=== PATIENT | male | born 1960 | race Caucasian/White ===

== ENCOUNTER → 2025-04-05 13:23 | Outpatient (REF) | payer OTHER, SELFPAY ==
[2025-04-05 14:04] LABS: Blood Urea Nitrogen 32 mg/dl (9-20); Calcium 9.4 mg/dl (8.4-10.2); Carbon Dioxide 28 mmol/L (22-30); Chloride 104 mmol/L (98-107); Glucose 105 mg/dl (70-99); Potassium 4.5 mmol/L (3.5-5.1); Sodium 136 mmol/L (135-145); eGFR 56.48
== END ==
LOC: REG 13:23
PROVIDERS: ATTENDING PHYSICIAN Family Medicine
DX: R31.29 Other microscopic hematuria (principal); N18.31 Chronic kidney disease, stage 3a; Z01.818 Encounter for other preprocedural examination
CPT/HCPCS: 36415; 74178; 80048; Q9967

== ENCOUNTER → 2025-04-18 20:02 | Outpatient (REF) | payer OTHER, SELFPAY | LOC: MRI 20:02 | PROVIDERS: ATTENDING PHYSICIAN Specialist; FAMILY PHYSICIAN Family Medicine | DX: D41.02 Neoplasm of uncertain behavior of left kidney (principal); R93.49 Abnormal radiologic findings on diagnostic imaging of other urinary organs; R31.0 Gross hematuria | CPT/HCPCS: 74183; A9575 ==

== ENCOUNTER → 2025-05-02 07:13 | Outpatient (REF) | payer OTHER, SELFPAY ==
[2025-05-02] VITALS (15 sets, daily range): BP systolic 47–146; BP diastolic 57–88
[2025-05-02 07:56] LABS: Hematocrit 35.9 % (39.0-52.0); Hemoglobin 10.9 g/dL (13.0-18.0); Mean Corp Hgb Conc. 30.4 g/dL (33.0-37.0); Mean Corpuscular Volume 79.2 fL (80.0-94.0); Nucleated Red Blood Cells % 0 % (-); Platelet Count 220 10^3/uL (130-400); Red Cell Dist. Width 18.5 % (11.5-14.5)
[2025-05-02 08:03] LABS: INR 1.21; PT 15.6 Sec (11.4-14.6)
[2025-05-02] MEDS: ANCEF 10 IV (08:22)
[2025-05-02 08:38] LABS: Blood Urea Nitrogen 30 mg/dl (9-20); Calcium 9.7 mg/dl (8.4-10.2); Carbon Dioxide 29 mmol/L (22-30); Chloride 104 mmol/L (98-107); Estimated Creatinine Clearance 62 ml/min; Glucose 101 mg/dl (70-99); Potassium 4.9 mmol/L (3.5-5.1); Sodium 136 mmol/L (135-145); eGFR 41.77
== END ==
LOC: RADI 07:13
PROVIDERS: ATTENDING PHYSICIAN Specialist; FAMILY PHYSICIAN Family Medicine; REFERRING PHYSICIAN Physician Assistant
DX: C64.2 Malignant neoplasm of left kidney, except renal pelvis (principal); Z85.47 Personal history of malignant neoplasm of testis; Z85.118 Personal history of other malignant neoplasm of bronchus and lung; Z85.89 Personal history of malignant neoplasm of other organs and systems; Z01.812 Encounter for preprocedural laboratory examination; Z01.818 Encounter for other preprocedural examination
CPT/HCPCS: 36415; 50200; 77012; 80048; 85025; 85610; 88305; 88333; 88341; 88342; 99152; 99153

== ENCOUNTER → 2025-05-22 09:02 | Outpatient (REF) | payer OTHER, SELFPAY ==
[2025-05-22 09:23] VITALS: BP 138/86; BP_SYST 50
== END ==
LOC: RADI 09:02
PROVIDERS: ATTENDING PHYSICIAN Internal Medicine Hematology & Oncology
DX: Z45.2 Encounter for adjustment and management of vascular access device (principal)
CPT/HCPCS: 36598

== ENCOUNTER → 2025-05-31 13:37 | Outpatient (REF) | payer OTHER, SELFPAY ==
[2025-05-31 14:20] LABS: Hematocrit 33.3 % (39.0-52.0); Hemoglobin 10.3 g/dL (13.0-18.0); Mean Corp Hgb Conc. 30.9 g/dL (33.0-37.0); Mean Corpuscular Volume 82.0 fL (80.0-94.0); Nucleated Red Blood Cells % 0 % (-); Platelet Count 223 10^3/uL (130-400); Red Cell Dist. Width 18.8 % (11.5-14.5)
[2025-05-31 16:00] LABS: ALT (SGPT) 33 U/L (0-50); AST (SGOT) 40 U/L (17-59); Albumin 4.5 g/dl (3.5-5.0); Alkaline Phosphatase 138 U/L (38-126); Blood Urea Nitrogen 33 mg/dl (9-20); Calcium 9.3 mg/dl (8.4-10.2); Carbon Dioxide 24 mmol/L (22-30); Chloride 103 mmol/L (98-107); Glucose 95 mg/dl (70-99); Potassium 5.1 mmol/L (3.5-5.1); Sodium 136 mmol/L (135-145); Total Protein 6.9 g/dl (6.3-8.2); eGFR 41.77
== END ==
LOC: REG 13:37
PROVIDERS: ATTENDING PHYSICIAN Internal Medicine Hematology & Oncology; FAMILY PHYSICIAN Family Medicine
DX: C66.9 Malignant neoplasm of unspecified ureter (principal); D50.0 Iron deficiency anemia secondary to blood loss (chronic); C78.7 Secondary malignant neoplasm of liver and intrahepatic bile duct
CPT/HCPCS: 36415; 80053; 85025

== ENCOUNTER → 2025-06-06 08:21 | Outpatient (REF) | payer OTHER, SELFPAY ==
[2025-06-06 09:13] LABS: Hematocrit 33.8 % (39.0-52.0); Hemoglobin 10.3 g/dL (13.0-18.0); Mean Corp Hgb Conc. 30.5 g/dL (33.0-37.0); Mean Corpuscular Volume 82.2 fL (80.0-94.0); Nucleated Red Blood Cells % 0 % (-); Platelet Count 189 10^3/uL (130-400); Red Cell Dist. Width 18.9 % (11.5-14.5)
[2025-06-06 09:41] LABS: ALT (SGPT) 28 U/L (0-50); AST (SGOT) 32 U/L (17-59); Albumin 4.4 g/dl (3.5-5.0); Alkaline Phosphatase 159 U/L (38-126); Blood Urea Nitrogen 28 mg/dl (9-20); Calcium 9.3 mg/dl (8.4-10.2); Carbon Dioxide 26 mmol/L (22-30); Chloride 102 mmol/L (98-107); Glucose 103 mg/dl (70-99); Potassium 5.4 mmol/L (3.5-5.1); Sodium 135 mmol/L (135-145); Total Protein 6.8 g/dl (6.3-8.2); eGFR 39.15
== END ==
LOC: REG 08:21
PROVIDERS: ATTENDING PHYSICIAN Internal Medicine Hematology & Oncology; FAMILY PHYSICIAN Family Medicine
DX: C66.9 Malignant neoplasm of unspecified ureter (principal); D50.0 Iron deficiency anemia secondary to blood loss (chronic); C78.7 Secondary malignant neoplasm of liver and intrahepatic bile duct
CPT/HCPCS: 36415; 80053; 85025